=== PATIENT | female | born 2000 | race Caucasian/White ===

== ENCOUNTER 2021-02-13 14:44 | Emergency (ER) | payer MEDICAID, SELFPAY ==
[2021-02-13 16:15] VITALS: BP 155/77; PULSE 68; RESP 20; TEMP 37.1; O2SAT 98; BMI 36.1
--- NOTE | 2021-02-13 16:23 | HMH.EDUTC ---
[facility] [place] Clinical Impression: Sinusitis Qualifiers: Sinusitis location: unspecified location Chronicity: unspecified Qualified Code(s): J32.9 - Chronic sinusitis, unspecified Disposition: Home, Self-Care Condition on Discharge: Good Instructions: Sinusitis, DI for Sinusitis, Azithromycin, Methylprednisolone Additional Instructions: *Monitor Temp, Over the counter Motrin or Tylenol as directed/as needed Tylenol every 4 hours and Motrin every 6 hours (as long as your family doctor has told you that you can take it) for fever or pain. and straight to ER if unable to lower temp less than 101.0 after medication given *Warm salt water gargles may help to soothe the throat *Throat Lozenges *Warm fluids like tea with honey may help to soothe the throat *Sleep elevated *Humidifier/Vaporizer *Flonase 2 sprays in each nostril daily but be aware that it may take 2-3 days before you notice improvement Take medication as prescribed Follow up IMMEDIATELY for new or worsening symptoms or no Noticeable improvement over the next 48-72 hours. 911 for difficulty breathing or swallowing Prescriptions: Fluticasone Propionate [Flonase 50mcg nasal spray 16gm] 1 spr NS DAILY #1 each Transmission Status: Pending to [id number] methylPREDNISolone [Medrol 4mg tab] 4 mg PO DIRECTED #21 tab Transmission Status: [facility] to [email or web address] Azithromycin [Z-Navid 250mg Tab] 250 mg PO DIRECTED #6 tab Transmission Status: [email or web address] Referrals: Provider,Referral, MD [Primary Care Provider] - As needed Time of Disposition: 16:29 Medical Decision Making - Vikas Inquiry Pt receiving controlled substance: No Vikas was queried for this patient: No Vital Signs: 02/13/21 16:15 Temperature 98.7 F Temperature Source Oral Pulse Rate [Right Radial] 68 Respiratory Rate 20 Blood Pressure [Right Arm] 155/77 H Blood Pressure Mean [Right Arm] 103 Blood Pressure Source [Right Arm] Automatic Cuff Blood Pressure Position [Right Arm] Sitting 02 Sat by Pulse Oximetry 98 Oxygen Delivery Method Room Air [facility] [place] HPI - General Stated complaint: possible sinus infection Time Seen by Provider: 02/13/21 16:23 Mode of Arrival: Ambulatory Source of Information: Patient Limitations: No Limitations Description of Symptoms (Recalled from Triage Doc. by RN): C/O cough, chest congestion, sinus pressure/pain since friday HEENT Symptoms (Recalled from RN notes): Yes (sinus pressure/pain) Resp Symptoms (Recalled from RN notes): Yes (cough, chest congestion) Skin Symptoms (Recalled from RN notes): No MS Symptoms (Recalled from RN notes): No Functional Status (Recalled from RN notes): n/a - History of Present Illness Provider Complaint: Patient states thats she has been having sinus pain and pressure and tenderness under her eyes States that she feels like she is having drianage in the back of her throat and the congestion is trying to move into her chest States that today she was still not feeling well so she came in to get checked - Related Data Previous Rx's Medication Instructions Recorded Azithromycin [Z-Navid 250mg Tab] 250 mg PO DIRECTED #6 tab 02/13/21 Fluticasone Propionate [Flonase 1 spr NS DAILY #1 each 02/13/21 50mcg nasal spray 16gm] methylPREDNISolone [Medrol 4mg 4 mg PO DIRECTED #21 tab 02/13/21 tab] - Worker's Comp Is this a Worker's Comp case?: No [facility] History - Hepatitis A Screen Drug use history?: No High risk sexual behaviors?: No History of sexually transmitted infection?: No Currently employed?: No Childcare worker?: No Do you have indoor plumbing?: Yes Do you have electricity?: Yes Attestation statement:: This patient has been screened for Hepatitis A risk factors. I have reviewed the patient's past medical history: Yes ROS Obtained: Yes All systems reviewed & no additional complaints, Yes Systems reviewed as appropriate & no additional complaints - Const
[2021-02-13 16:52] VITALS: BP 155/77; PULSE 68; RESP 20; TEMP 37.1; O2SAT 98
== END 2021-02-13 16:53 | disposition home or self-care (01) ==
PROVIDERS: Emergency Provider Nurse Practitioner
DX: J32.9 Chronic sinusitis, unspecified (principal)
CPT/HCPCS: 99202; G0463